=== PATIENT | male | born 1995 | race Two or more races ===

== ENCOUNTER 2018-01-06 23:02 | Emergency (ER) | payer OTHER ==
--- NOTE | 2018-01-06 23:21 | EDPHY ---
H & P Stated Complaint: r anterior hip pain Time Seen by Provider: 01/06/18 23:21 HPI/ROS: HPI CHIEF COMPLAINT: Left hip pain. HISTORY OF PRESENT ILLNESS: Patient is a 22-year-old male, presents emergency room with left hip pain. Patient states he has had left hip pain for approximately a month. He states that he was seen at [facility] and had an MRI about a month ago but was told that is specialist would go over the results with him. He is unsure the MRI showed. He has been suffering for the past month with hip pain. He denies fever. Denies back pain. Denies significant trauma. He does state that he may have hurt his hip when he was playing soccer. He is able to bear weight but with any flexion of his hip joint or extension he has discomfort. The pain got worse tonight decided come the emergency room. He states he had an MRI has disc at home. His girlfriend is going to go get it. Past Medical History: Denies significant medical history Past Surgical History: Denies significant surgical history Social History: Denies daily use drugs alcohol tobacco. Works as a cook. Family History: Noncontributory ROS REVIEW OF SYSTEMS: A comprehensive 10 point review of systems is otherwise negative aside from elements mentioned in the history of present illness. Exam Constitutional triage nursing summary reviewed, vital signs reviewed, awake/ alert. Eyes normal conjunctivae and sclera, EOMI, PERRLA. HENT normal inspection, atraumatic, moist mucus membranes, no epistaxis, neck supple/ no meningismus, no raccoon eyes. Respiratory clear to auscultation bilaterally, normal breath sounds, no respiratory distress, no wheezing. Cardiovascular rate normal, regular rhythm, no murmur, no edema, distal pulses normal. Gastrointestinal soft, non-tender, no rebound, no guarding, normal bowel sounds, no distension, no pulsatile mass. Genitourinary no CVA tenderness. Musculoskeletal left lower extremity: Distally neurovascular intact good distal pulse, good cap refill. With any flexion of the left hip he has severe pain anterior left hip region. Does not really radiate anywhere sometimes goes down into his thigh. There is no significant swelling or warmth or erythema on exam. He prefers not to move it. This is been like this for month. Skin pink, warm, & dry, no rash, skin atraumatic. Neurologic awake, alert and oriented x 3, AAOx3, moves all 4 extremities equally, motor intact, sensory intact, CN II-XII intact, normal cerebellar, normal vision, normal speech. Psychiatric normal mood/affect. Heme/Lymph/Immune no lymphadenopathy. Differential Diagnosis: Includes but is not limited to in a particular order hip contusion, tendinitis, musculoskeletal strain, muscle tear, hep flexor tear , septic joint Medical Decision Making: Plan for this patient will review the patient's outside MRI, IV establishment pain control IV Toradol for pain control, IV Dilaudid for pain control, x-ray left hip and re-evaluate. Check basic blood work. Re-evaluation: X-ray of left hip reviewed. Shows significant osteoarthritis of the left hip joint. Outside MRI was interpreted by Radiology at the patient's request. It shows significant osteoarthritis and a CAM INJURY. I discussed the patient's MRI results with him. Additionally discussed his next step for care. He should follow up with Orthopedics. He is bone on bone on his x-ray and his MRI shows significant acute disease process. He will need to follow up with Orthopedics. Most likely will need hip replacement. I discussed this with him. I have placed on crutches. Recommend anti-inflammatory pain medicine. Additionally return precautions discussed with him. He understands return if he has worsening pain, fever, worsening symptoms. He should follow up with Orthopedics. Source: Patient - Personal History Current Tetanus/Diphtheria Vaccine: Yes Current Tetanus Diphtheria and Acellular Pertussis (TDAP): Yes - Medical/Surgical History Hx Asthma: No Hx Chronic Respiratory Disease: No Hx Diabetes: No Hx Cardiac Disease: No Hx Renal Disease: No Hx Cirrhosis: No Hx Alcoholism: No Hx HIV/AIDS: No Hx Splenectomy or Spleen Trauma: No - Social History Smoking Status: Never smoked Constitutional: Initial Vital Signs Temperature (C) 36.5 C 01/06/18 23:07 Heart Rate 81 01/06/18 23:07 Respiratory Rate 18 01/06/18 23:07 Blood Pressure 119/68 01/06/18 23:07 O2 Sat (%) 96 01/06/18 23:07 O2 Delivery Mode Room Air Allergies/Adverse Reactions: No Known Allergies Allergy (Unverified 12/03/13 18:34) Home Medications: Medication Instructions Recorded Ibuprofen [Motrin (*)] 800 mg PO Q6-8PRN #10 tab 01/07/18 Medical Decision Making - Diagnostics Imaging Results: Imaging Impressions Hip X-Ray 01/06/18 23:29 Impression: 1. CAM deformity with severe osteoarthritis in the left hip. 2. Moderate osteoarthritis in the right hip. 3. Additional findings as above. - Data Points Laboratory Results: Laboratory Results 01/06/18 23:35 01/06/18 23:35 01/06/18 01/06/18 23:35 23:35 WBC 8.96 10^3/uL 10^3/uL (3.80-9.50) RBC 4.78 10^6/uL 10^6/uL (4.40-6.38) Hgb 13.4 g/dL L g/dL (13.7-17.5) Hct 41.1 % % (40.0-51.0) MCV 86.0 fL fL (81.5-99.8) MCH 28.0 pg pg (27.9-34.1) MCHC 32.6 g/dL g/dL (32.4-36.7) RDW 12.8 % % (11.5-15.2) Plt Count 333 10^3/uL 10^3/uL (150-400) MPV 8.6 fL L fL (8.7-11.7) Neut % (Auto) 62.4 % % (39.3-74.2) Lymph % (Auto) 28.7 % % (15.0-45.0) [place] % (Auto) 8.0 % % (4.5-13.0) Eos % (Auto) 0.3 % L % (0.6-7.6) Baso % (Auto) 0.3 % % (0.3-1.7) Nucleat RBC Rel Count 0.0 % % (0.0-0.2) Absolute Neuts (auto) 5.58 10^3/uL 10^3/uL (1.70-6.50) Absolute Lymphs (auto) 2.57 10^3/uL 10^3/uL (1.00-3.00) Absolute Monos (auto) 0.72 10^3/uL 10^3/uL (0.30-0.80) Absolute Eos (auto) 0.03 10^3/uL 10^3/uL (0.03-0.40) Absolute Basos (auto) 0.03 10^3/uL 10^3/uL (0.02-0.10) Absolute Nucleated RBC 0.00 10^3/uL 10^3/uL (0-0.01) Immature Gran % 0.3 % % (0.0-1.1) Immature Gran # 0.03 10^3/uL 10^3/uL (0.00-0.10) Sodium 140 mEq/L mEq/L (135-145) Potassium 3.9 mEq/L mEq/L (3.3-5.0) Chloride 100 mEq/L mEq/L (97-110) Carbon Dioxide 28 mEq/l mEq/l (22-31) Anion Gap 12 mEq/L mEq/L (8-16) BUN 15 mg/dL mg/dL (7-23) Creatinine 0.9 mg/dL mg/dL (0.7-1.3) Estimated GFR > 60 Glucose 90 mg/dL mg/dL (70-100) Calcium 9.5 mg/dL mg/dL (8.5-10.4) Medications Given: Discontinued Medications Sodium Chloride (Ns) 1,000 mls @ 0 mls/hr IV EDNOW ONE; Wide Open PRN Reason: Protocol Stop: 01/06/18 23:29 Last Admin: 01/06/18 23:41 Dose: 1,000 mls Ketorolac Tromethamine (Toradol) 15 mg IVP EDNOW ONE Stop: 01/06/18 23:30 Last Admin: 01/07/18 00:42 Dose: 15 mg Departure - Departure Disposition: Home, Routine, Self-Care Clinical Impression: Osteoarthritis of left hip Qualifiers: Osteoarthritis type: primary Qualified Code(s): M16.12 - Unilateral primary osteoarthritis, left hip Condition: Good Instructions: Osteoarthritis (ED), Arthritis (ED) Additional Instructions: 1. Use your crutches to help ambulate. 2. You need to follow up with Orthopedics. Please call their for an appointment. 3. Anti-inflammatory pain medicine for pain control. Referrals: NONE *PRIMARY CARE P,. [Primary Care Provider] - As per Instructions Edis Giang MD [Medical Doctor] - As per Instructions Prescriptions: Ibuprofen [Motrin (*)] 800 mg PO Q6-8PRN #10 tab
[2018-01-06] MEDS ORDERED: NS 1,000 ML IV ONE (23:28)
[2018-01-06] MEDS ORDERED: HYDROmorphONE/DILAUDID 2 MG/ML INJ IVP ONE (23:29)
[2018-01-06] MEDS ORDERED: KETOROLAC 15 MG/1 ML SDV IVP ONE (23:29)
[2018-01-06 23:42] LABS: PLATELET COUNT 333 10^3/uL (150-400)
[2018-01-07 02:16] VITALS: BP 116/74
== END 2018-01-07 02:15 | disposition home or self-care (01) ==
DX: M16.12 Unilateral primary osteoarthritis, left hip (principal); E86.9 Volume depletion, unspecified
CPT/HCPCS: 96374; J1885